=== PATIENT | female | born 1995 | race Caucasian/White ===

== ENCOUNTER → 2019-02-15 | Outpatient (REF) | payer OTHER | LOC: M SFHCWAGY 10:09 | PROVIDERS: ATTEND Nurse Practitioner Women's Health | DX: Z12.4 Encounter for screening for malignant neoplasm of cervix (principal) ==

== ENCOUNTER → 2019-08-02 | Outpatient (REF) | payer MEDICAID ==
[2019-08-02 18:06] LABS: FREE T4 1.11 NG/DL (0.76-1.46)
[2019-08-02 18:07] LABS: ESTRADIOL < 19.0 PG/ML; FOLLICLE STIMULATING HORMONE 2.1 mIU/mL; LUTEINIZING HORMONE 0.5 mIU/mL
[2019-08-04 14:06] LABS: DEHYDROEPIANDROSTERONE SULFATE 210.2 ug/dL (84.8-378.0); TESTOSTERONE FREE (DIRECT) 1.2 pg/mL (0.0-4.2)
== END ==
LOC: M PLALAB 15:35
PROVIDERS: ATTEND Nurse Practitioner Women's Health
DX: N92.6 Irregular menstruation, unspecified (principal)

== ENCOUNTER → 2019-08-07 | Outpatient (CLI) | payer MEDICAID ==
--- NOTE | 2019-08-07 10:34 | REP ---
PELVIC ULTRASOUND: Real-time sonographic evaluation if the pelvis is performed. Transabdominal and endovaginal technique is utilized. Bladder measures 7.7 x 5.9 cm. Uterus measures 7.4 x 3.9 x 5.3 cm. Endometrial thickness is 4 mm. Several small nabothian cysts are seen in the region of the cervix. Ovaries are normal in size and echotexture, right ovary measuring 2.5 x 1.2 x 1.3 cm and left ovary 2.4 x 1.3 x 1.7 cm. There is no evidence of torsion of either ovary with duplex Doppler evaluation No adnexal mass or free fluid is seen. IMPRESSION: Essentially negative pelvic ultrasound. Endometrial thickness is 4 mm. Subcentimeter nabothian cysts in the region of the cervix.
== END ==
LOC: M WHC 08:58
PROVIDERS: ATTEND Nurse Practitioner Women's Health
DX: N88.8 Other specified noninflammatory disorders of cervix uteri (principal); N92.6 Irregular menstruation, unspecified

== ENCOUNTER → 2021-07-06 | Outpatient (REF) | payer OTHER, MEDICAID | LOC: M PLALAB 15:55 | PROVIDERS: ATTEND Obstetrics & Gynecology | DX: Z01.419 Encounter for gynecological examination (general) (routine) without abnormal findings (principal) ==